=== PATIENT | male | born 1960 | race African-American/Black ===

== ENCOUNTER 2016-07-06 11:57 | Emergency (ER) | payer MEDICAID ==
[~2016-07-06] VITALS: Ht 188 cm; Wt 83.9 kg
[~2016-07-06 11:57] MED LIST: IBUPROFEN600 MG ORAL; NORCO 5-325 TA1 EACH ORAL
[2016-07-06] MEDS ORDERED: GUAIFENESIN1200 MG PO (13:05)
[2016-07-06] MEDS ORDERED: PROMETHAZINE-C118 M1 ORAL (13:05)
[2016-07-06] MEDS ORDERED: LORATADINE10 M2 PO (13:05)
[2016-07-06] MEDS ORDERED: ALBUTEROL SULF8.5 GM INH (13:05)
[2016-07-06 13:34] VITALS: BP 108/61
--- NOTE | 2016-07-06 13:37 | Emergency Room Report ---
History of Present Illness General Chief Complaint: Sore Throat Source: Patient Present Illness HPI 55-year-old male presents emergency department complaining of cough, nasal congestion, sore throat rated as 6/10 in severity, rhinorrhea x2 weeks. Patient denies recent travel reports ill contacts. Patient states his sister was diagnosed with bronchitis. Patient reports history of asthma in childhood. Patient denies productive cough, however he states he feels as though he is phlegm stuck in his throat. he states cough is worse at night. He denies fevers and chills. He denies being up-to-date with vaccinations. he denies history of immunocompromise. Denies CP, Palpitations, LOC, AMS, dizziness, Changes in Vision, Sensation, paresthesias, or a sudden severe headache. Allergies: Coded Allergies: No Known Allergies (Unverified , 05/27/13) Patient History Past Medical History: see triage record Past Surgical History: none Pertinent Family History: none Immunizations: UTD Reviewed Nursing Documentation: PMH: Agreed, PSxH: Agreed Nursing Documentation-PMH Past Medical History: No History, Except For Hx Hypertension: Yes Hx Diabetes: Yes Review of Systems All Other Systems: negative except mentioned in HPI Physical Exam Vital Signs Date Time Temp Pulse Resp B/P Pulse Ox O2 Delivery O2 Flow Rate FiO2 07/06/16 13:06 98.2 107 18 110/64 100 Room Air Sp02 EP Interpretation: reviewed, normal General Appearance: no apparent distress, alert, GCS 15, non-toxic Head: normocephalic, atraumatic Eyes: bilateral eye PERRL, bilateral eye normal inspection ENT: hearing grossly normal, normal pharynx, no angioedema, normal voice, TMs + canals normal, uvula midline, moist mucus membranes, nasal congestion - clear rhinorrhea, pharyngeal erythema Neck: full range of motion, no meningismus, no bony tend, supple/symm/no masses Respiratory: chest non-tender, lungs clear, normal breath sounds, speaking full sentences, wheezing - scant expiratory wheezes at end of expiration bilaterally. Cardiovascular #1: regular rate, rhythm, no edema, normal capillary refill Musculoskeletal: back normal, gait/station normal, normal range of motion, non- tender Neurologic: alert, oriented x3, responsive, motor strength/tone normal, sensory intact, speech normal Psychiatric: judgement/insight normal, memory normal, mood/affect normal Skin: normal color, no rash, warm/dry, well hydrated Lymphatic: no adenopathy Medical Decision Making PA Attestation Dr. Thomas is my supervising Physician whom patient management has been discussed with. Diagnostic Impression: Primary Impression: Bronchitis Additional Impression: Pharyngitis Qualified Codes: J02.9 - Acute pharyngitis, unspecified ER Course 55-year-old male presents emergency department complaining of cough, nasal congestion, sore throat rated as 6/10 in severity, rhinorrhea x2 weeks. Patient denies recent travel reports ill contacts. Patient states his sister was diagnosed with bronchitis. Patient reports history of asthma in childhood. Patient denies productive cough, however he states he feels as though he is phlegm stuck in his throat. he states cough is worse at night. He denies fevers and chills. He denies being up-to-date with vaccinations. he denies history of immunocompromise. Ddx considered but are not limited to URI, pneumonia, PE, strep pharyngitis, meningitis. Vital signs: Pt. is afebrile, the remaining VS are WNL H&PE are most consistent with URI- no meningeal signs, oropharynx is erythematous however no tonsillar swelling or exudates noted. no evidence of bacterial infection at this time. lungs are CTA bilaterally with mild expiratory wheezes heard. ORDERS: none required at this time, the diagnosis is clinical ED INTERVENTIONS: None required at this time. --PT. EDUCATION: Discussed antibiotic resistance with inappropriate prescribing of antibiotics for viral illnesses. Discussed signs and symptoms to indicate viral illness versus bacterial illness. DISCHARGE: At this time pt. is stable for d/c to home. Will provide printed patient care instructions, and any necessary prescriptions. Care plan and follow up instructions have been discussed with the patient prior to discharge. Last Vital Signs Date Time Temp Pulse Resp B/P Pulse Ox O2 Delivery O2 Flow Rate FiO2 07/06/16 13:34 98.2 98 18 108/61 100 Room Air Disposition: HOME, SELF-CARE Condition: Stable Scripts Loratadine (LORATADINE) 10 Mg Tablet 10 MG PO DAILY for 10 Days, #10 TAB Prov: Angely Subramanian P.A. 07/06/16 Guaifenesin (Guaifenesin) 1,200 Mg Tab.er.12h 1200 MG PO BID for 10 Days, #20 TAB Prov: Angely Subramanian 07/06/16 Albuterol Sulfate* (ALBUTEROL SULFATE MDI*) 8.5 Gm Hfa.aer.ad 2 PUFF INH Q3H, #1 INH 0 Refills Prov: Angely Subramanian 07/06/16 Codeine/Promethazine Hcl* (PROMETHAZINE-CODEINE SYRUP*) 118 Ml Syrup 5 ML ORAL Q6H Y for For Cough, #118 ML 0 Refills Prov: Angely Subramanian 07/06/16 Patient Instructions: Acute Bronchitis Additional Instructions: Take medications as directed. Follow up with PCP in 3-5 days Return sooner to ED if new symptoms occur, or current symptoms become worse. Do not drink alcohol, drive, or operate heavy machinery while taking cough syrup as this may cause drowsiness. - Please note that this Emergency Department Report was dictated using [employer] inspector technology software, occasionally this can lead to erroneous entry secondary to interpretation by the dictation equipment. Angely Subramanian Jul 06, 2016 13:37
== END 2016-07-06 13:37 | disposition home or self-care (01) ==
LOC: EMR 13:15
DX: J40 Bronchitis, not specified as acute or chronic (principal); J02.9 Acute pharyngitis, unspecified; I10 Essential (primary) hypertension; E11.9 Type 2 diabetes mellitus without complications
CPT/HCPCS: 99284